=== PATIENT | female | born 1980 | race Two or more races ===

== ENCOUNTER 2016-10-03 07:45 | Day surgery (SDC) | payer OTHER ==
[2016-10-01 16:49] LABS: Urine Bilirubin Negative (Negative); Urine Blood Negative /uL (Negative); Urine Color Yellow (Yellow); Urine Glucose Normal (Normal); Urine Ketone Negative (Negative); Urine Nitrite Negative (Negative); Urine RBC <1 /hpf (0 - 4); Urine Squamous Epithelial Cell FEW /hpf (<5); Urine Urobilinogen Normal (Negative); Urine pH 6.5 (5.0-8.0)
[2016-10-01 17:02] LABS: INR 0.91 (0.9-1.15); Partial Thromboplastin Time 25.7 sec (22.64-33.71); Prothrombin Time 9.8 sec (9.37-12.3)
[2016-10-01 17:11] LABS: Albumin 3.9 g/dL (3.4-5.0); BUN/Creatinine Ratio 30.6; Bilirubin, Total 0.3 mg/dL (0.2-1.0); Calcium 9.3 mg/dL (8.5-10.1); Potassium 3.9 mmol/L (3.5-5.1); Total Protein 7.6 g/dL (6.4-8.2)
[2016-10-01 18:12] LABS: Basophils # (auto) 0 uL; Basophils % (auto) 0.2 % (0.0-2.0); Eosinophils # (auto) 0.1 uL; Hematocrit 38.7 % (36.0-46.0); Hemoglobin 12.9 g/dL (12.2-16.2); Lymphocytes # (auto) 2.1 uL; Lymphocytes % (auto) 30.9 % (10.0-50.0); Mean Corpuscular Hgb Conc. 33.3 g/dL (32.0-36.0); Mean Corpuscular Volume 90.2 fL (80.0-100.0); Mean Platelet Volume 8.5 fL (7.4-10.4); Monocytes # (auto) 0.5 uL; Monocytes % (auto) 7.2 % (0.0-12.0); Neutrophils # (auto) 4.2 uL; Neutrophils % (auto) 60.7 % (37.0-80.0); Platelet Count (auto) 308 10^3/uL (140-450); White Blood Cell 6.9 10^3/uL (4.4-10.8)
[~2016-10-03] VITALS: Ht 160 cm; Wt 66.2 kg
[~2016-10-03 07:45] MED LIST: PREN-96 PO
[2016-10-03] MEDS ORDERED: ceFAZolin 1GM/50ML D5W 50 ML IV ONE (08:17)
[2016-10-03] MEDS ORDERED: BUPIVACAINE 0.75% INJ 10ML MPV SDV IJ ONE (09:23)
[2016-10-03] MEDS ORDERED: fentaNYL CITRATE 100 MCG/2 ML VL ONE (09:32)
[2016-10-03] MEDS ORDERED: MIDAZOLAM HCL 1MG/1ML-2 ML VIAL ONE (09:32)
[2016-10-03] MEDS ORDERED: PROPOFOL 10 MG/ML 20 ML IV ONE (09:33)
[2016-10-03] MEDS ORDERED: ONDANSETRON HCL 4 MG/2 ML VIAL IV ONE (10:15)
[2016-10-03] MEDS ORDERED: hydrALAZINE HCL 20 MG/ML VL IV PRN (10:15)
[2016-10-03] MEDS ORDERED: ePHEDrine SULFATE 50 MG/ML AMP IV PRN (10:15)
[2016-10-03] MEDS ORDERED: fentaNYL CITRATE 100 MCG/2 ML VL IV ONE (11:00)
[2016-10-03 11:06] VITALS: BP 118/69
== END 2016-10-03 11:06 | disposition home or self-care (01) ==
LOC: SUR 07:45
PROVIDERS: ATTEND Podiatrist Foot & Ankle Surgery
DX: M67.471 Ganglion, right ankle and foot (principal)
CPT/HCPCS: 28090; 36415; 80053; 81001; 84702; 85025; 85610; 85730; 88304; C1887; J0690; J2250; J2704; J3010; J3490; J7030; V2790